=== PATIENT | female | born 1945 | race Caucasian/White ===

== ENCOUNTER 2016-05-08 10:14 | Outpatient (CLI) | payer MEDICARE | END 2016-05-08 10:15 | disposition home or self-care (01) | DX: E11.65 Type 2 diabetes mellitus with hyperglycemia (principal) ==

== ENCOUNTER 2016-09-26 08:55 | Outpatient (CLI) | payer MEDICARE ==
[2016-09-26 12:02] LABS: BASOPHILS # (AUTO) 0.1 10^3/uL (0.0-0.1); BASOPHILS % (AUTO) 1.1 %; EOSINOPHILS # (AUTO) 0.5 10^3/uL (0.0-0.7); EOSINOPHILS % (AUTO) 5.4 %; HCT - HEMATOCRIT 39.3 % (37.0-47.0); HGB - HEMOGLOBIN 13.4 g/dL (12.0-16.0); LYMPHOCYTES # (AUTO) 1.9 10^3/uL (1.5-3.5); LYMPHOCYTES % (AUTO) 22.7 %; MEAN CORPUSCULAR HEMOGLOBIN 31.5 pg (27.0-31.0); MEAN CORPUSCULAR HGB CONC 34.1 g/dL (32.0-36.0); MEAN CORPUSCULAR VOLUME 92.5 fL (81.0-99.0); MEAN PLATELET VOLUME 9.8 fL (7.9-10.8); MONOCYTES # (AUTO) 0.6 10^3/uL (0.0-1.0); MONOCYTES % (AUTO) 7.3 %; NEUTROPHILS # (AUTO) 5.3 10^3/uL (1.5-6.6); NEUTROPHILS % (AUTO) 63.5 %; RED BLOOD COUNT 4.25 10^6/uL (4.20-5.40); RED CELL DISTRIBUTION WIDTH 13.4 % (12.0-15.0); UNCORRECTED WHITE BLOOD COUNT 8.4 x10^3/uL; WHITE BLOOD COUNT 8.4 x10^3/uL (4.8-10.8)
[2016-09-26 12:37] LABS: HEMOGLOBIN A1C 1.52 g/dL
[2016-09-26 12:38] LABS: ALBUMIN/GLOBULIN RATIO 1.1 (1.0-2.2); BILIRUBIN,TOTAL 0.6 mg/dL (0.2-1.0); BUN - BLOOD UREA NITROGEN 29 mg/dL (6-20); CALCIUM 9.9 mg/dL (8.5-10.3); CARBON DIOXIDE - CO2 23 mmol/L (21-32); CHLORIDE 106 mmol/L (101-111); CHOL/HDL RATIO 6.1 (<4.4); CHOLESTEROL 225 mg/dL; CREATININE 1.6 mg/dL (0.4-1.0); GFR - MDRD 32 (>89); GLUCOSE 398 mg/dL (70-100); HDL CHOLESTEROL 37 mg/dL; LDL/HDL RATIO 3.6 (<4.4); SODIUM 137 mmol/L (135-145); TOTAL PROTEIN 6.9 g/dL (6.7-8.2); TRIGLYCERIDES 275 mg/dL; VLDL CHOLESTEROL 55 mg/dL
== END 2016-09-26 08:56 | disposition home or self-care (01) ==
LOC: LAB.F 08:55
PROVIDERS: ATTEND Family Medicine
DX: E11.65 Type 2 diabetes mellitus with hyperglycemia (principal)
CPT/HCPCS: 36415; 80053; 80061; 82043; 83036; 84443; 85025

== ENCOUNTER 2016-10-09 10:44 | Outpatient (CLI) | payer MEDICARE ==
--- NOTE | 2016-10-09 12:58 | XRAY Report ---
TWO-VIEW LEFT KNEE: 10/09/2016 CLINICAL INDICATION: Pain. FINDINGS: AP, lateral views of the left knee are compared to previous films of 12/11/2013. Sideplat e and screw fixation of the left distal femur is unchanged. There is no evidence of acute fracture o r hardware complication. No knee joint effusion is present. The joint spaces appear unremarkable. IMPRESSION: STABLE PREVIOUS SIDEPLATE AND SCREW FIXATION OF THE DISTAL FEMUR. JOB #: [id number] EXT JOB #:[id number]
== END 2016-10-09 10:45 | disposition home or self-care (01) ==
LOC: DI 10:44
PROVIDERS: ATTEND Family Medicine
DX: M25.562 Pain in left knee (principal); Z98.1 Arthrodesis status

== ENCOUNTER 2016-11-30 10:14 | Outpatient (CLI) | payer MEDICARE ==
[2016-11-30 19:35] LABS: HEMOGLOBIN A1C 0.81 g/dL
[2016-11-30 19:40] LABS: ALBUMIN/GLOBULIN RATIO 1.2 (1.0-2.2); BILIRUBIN,TOTAL 0.6 mg/dL (0.2-1.0); BUN - BLOOD UREA NITROGEN 49 mg/dL (6-20); CALCIUM 9.6 mg/dL (8.5-10.3); CARBON DIOXIDE - CO2 20 mmol/L (21-32); CHLORIDE 113 mmol/L (101-111); CHOL/HDL RATIO 3.6 (<4.4); CHOLESTEROL 143 mg/dL; CREATININE 2.6 mg/dL (0.4-1.0); GFR - MDRD 18 (>89); GLUCOSE 148 mg/dL (70-100); HDL CHOLESTEROL 40 mg/dL; LDL/HDL RATIO 2.2 (<4.4); POTASSIUM 5.1 mmol/L (3.5-5.0); SODIUM 140 mmol/L (135-145); TOTAL PROTEIN 6.8 g/dL (6.7-8.2); TRIGLYCERIDES 77 mg/dL; VLDL CHOLESTEROL 15 mg/dL
== END 2016-11-30 10:15 | disposition home or self-care (01) ==
LOC: LAB.F 10:14
PROVIDERS: ATTEND Family Medicine
DX: E78.5 Hyperlipidemia, unspecified (principal); N18.3 Chronic kidney disease, stage 3 (moderate); E11.65 Type 2 diabetes mellitus with hyperglycemia
CPT/HCPCS: 36415; 80053; 80061; 83036

== ENCOUNTER 2016-12-26 10:46 | Outpatient (CLI) | payer MEDICARE ==
[2016-12-26 18:10] LABS: CALCIUM 9.7 mg/dL (8.5-10.3); CREATININE 2.5 mg/dL (0.4-1.0); POTASSIUM 4.8 mmol/L (3.5-5.0)
== END 2016-12-26 10:47 | disposition home or self-care (01) ==
LOC: LAB.F 10:46
PROVIDERS: ATTEND Family Medicine
DX: N18.4 Chronic kidney disease, stage 4 (severe) (principal)
CPT/HCPCS: 36415; 80048

== ENCOUNTER 2017-01-02 09:10 | Outpatient (CLI) | payer MEDICARE ==
--- NOTE | 2017-01-02 10:47 | Ultrasound Report ---
RETROPERITONEAL ULTRASOUND: 01/02/2017 HISTORY: Stage IV chronic kidney disease. TECHNIQUE: Real-time scanning by the service counter cashier with saved static images reviewed. COMPARISON: CT scan abdomen and pelvis 08/13/2015. FINDINGS: Right kidney: 9.9 x 4.7 x 5.0 cm. Increased echogenicity with thinning of the renal cortex. No fin dings of mass, stones, obstruction, or perinephric collection. Left kidney: 11.7 x 5.5 x 4.9 cm. Increased echogenicity with thinning of the renal cortex. In the mid portion of the kidney, there is an area with twinkle artifact possibly representing calcificatio n although no stone is seen. No hydronephrosis, perinephric collection, mass or other finding. Bladder jets: Right not seen. Left is present. Bladder: Prevoid volume 121 mL, postvoid 3 mL. Unremarkable bladder appearance. IMPRESSION: BILATERAL ECHOGENIC KIDNEYS WITH THINNING OF THE RENAL CORTEX. NO EVIDENCE OF OBSTRUCTI ON. NEGATIVE BLADDER. JOB #: [id number] EXT JOB #:[id number]
== END 2017-01-02 09:11 | disposition home or self-care (01) ==
LOC: DI 09:10
PROVIDERS: ATTEND Family Medicine
DX: N18.4 Chronic kidney disease, stage 4 (severe) (principal)
CPT/HCPCS: 76770

== ENCOUNTER 2017-01-23 11:14 | Outpatient (CLI) | payer MEDICARE ==
[2017-01-23 17:56] LABS: HCT - HEMATOCRIT 34.8 % (37.0-47.0); HGB - HEMOGLOBIN 11.6 g/dL (12.0-16.0); MEAN CORPUSCULAR HEMOGLOBIN 32.1 pg (27.0-31.0); MEAN CORPUSCULAR HGB CONC 33.4 g/dL (32.0-36.0); RED BLOOD COUNT 3.62 10^6/uL (4.20-5.40); RED CELL DISTRIBUTION WIDTH 13.4 % (12.0-15.0); WHITE BLOOD COUNT 7.8 x10^3/uL (4.8-10.8)
== END 2017-01-23 11:15 | disposition home or self-care (01) ==
LOC: LAB.F 11:14
PROVIDERS: ATTEND Internal Medicine Nephrology
DX: D70.9 Neutropenia, unspecified (principal); R80.9 Proteinuria, unspecified
CPT/HCPCS: 36415; 82570; 84156

== ENCOUNTER 2017-03-02 11:14 | Outpatient (CLI) | payer MEDICARE ==
[2017-03-02 17:54] LABS: ALBUMIN/GLOBULIN RATIO 1.2 (1.0-2.2); BILIRUBIN,TOTAL 0.5 mg/dL (0.2-1.0); CALCIUM 9.7 mg/dL (8.5-10.3); CREATININE 2.2 mg/dL (0.4-1.0); PHOSPHORUS 3.5 mg/dL (2.5-4.6); TOTAL PROTEIN 7.4 g/dL (6.7-8.2)
[2017-03-06 15:36] LABS: ABNORMAL PROTEIN BAND 1 0.3 g/dL (NONE DETECTED); ALPHA 1 GLOBULIN 0.4 g/dL (0.2-0.3); ALPHA 2 GLOBULIN 0.9 g/dL (0.5-0.9); BETA 1 GLOBULIN 0.4 g/dL (0.4-0.6); BETA 2 GLOBULIN 0.3 g/dL (0.2-0.5); GAMMA GLOBULIN 1.1 g/dL (0.8-1.7)
[2017-03-06 16:26] LABS: TEST RESULT REPORT
== END 2017-03-02 11:15 | disposition home or self-care (01) ==
LOC: LAB.F 11:14
PROVIDERS: ATTEND Internal Medicine Nephrology
DX: N05.9 Unspecified nephritic syndrome with unspecified morphologic changes (principal); E83.30 Disorder of phosphorus metabolism, unspecified; N25.81 Secondary hyperparathyroidism of renal origin; D47.2 Monoclonal gammopathy; R80.9 Proteinuria, unspecified
CPT/HCPCS: 36415; 80053; 81599; 82570; 83970; 84100; 84155; 84156; 84165; 86334

== ENCOUNTER 2017-05-14 10:12 | Outpatient (CLI) | payer MEDICARE ==
[2017-05-14 18:33] LABS: CREATININE,URINE 77.4 mg/dL; PROTEIN/CREATININE RATIO,URINE 0.2 (<=0.2)
[2017-05-14 19:15] LABS: ALBUMIN 3.5 g/dL (3.2-5.5); ALBUMIN/GLOBULIN RATIO 1.1 (1.0-2.2); BILIRUBIN,TOTAL 0.6 mg/dL (0.2-1.0); CALCIUM 9.2 mg/dL (8.5-10.3); CREATININE 2.5 mg/dL (0.4-1.0); PHOSPHORUS 3.9 mg/dL (2.5-4.6); TOTAL PROTEIN 6.7 g/dL (6.7-8.2)
== END 2017-05-14 10:13 | disposition home or self-care (01) ==
LOC: LAB.F 10:12
PROVIDERS: ATTEND Internal Medicine Nephrology
DX: N05.9 Unspecified nephritic syndrome with unspecified morphologic changes (principal); D47.2 Monoclonal gammopathy; R80.9 Proteinuria, unspecified; E83.30 Disorder of phosphorus metabolism, unspecified; N25.81 Secondary hyperparathyroidism of renal origin
CPT/HCPCS: 36415; 80053; 82570; 83970; 84100; 84155; 84156; 84165

== ENCOUNTER 2017-05-23 11:55 | Outpatient (CLI) | payer MEDICARE ==
[2017-05-23 20:02] LABS: HB2 TOTAL 13.1 g/dL; HEMOGLOBIN A1C 1.85 g/dL; HEMOGLOBIN A1C % 15.1 % (4.6-6.2)
== END 2017-05-23 11:56 | disposition home or self-care (01) ==
LOC: LAB.WCP 11:55
PROVIDERS: ATTEND Family Medicine
DX: E11.65 Type 2 diabetes mellitus with hyperglycemia (principal)
CPT/HCPCS: 36415; 83036

== ENCOUNTER 2017-05-25 16:51 | Outpatient (CLI) | payer MEDICARE | END 2017-05-25 16:52 | disposition EMS.NT | LOC: EMS 16:51 | PROVIDERS: ATTEND Surgery | DX: S09.92XA Unspecified injury of nose, initial encounter (principal); V47.0XXA Car driver injured in collision with fixed or stationary object in nontraffic accident, initial encounter; Y92.481 Parking lot as the place of occurrence of the external cause ==

== ENCOUNTER 2017-07-18 19:40 | Emergency (ER) | payer MEDICARE ==
[2017-07-18 19:58] VITALS: BP 147/69
--- NOTE | 2017-07-18 20:34 | XRAY Report ---
EXAM: RIGHT WRIST RADIOGRAPHY EXAM DATE: 07/18/2017 08:26 PM. CLINICAL HISTORY: Trauma. COMPARISON: None. TECHNIQUE: 4 views. FINDINGS: Bones: There is comminuted fracture of the distal right radius. The fracture line is transversely ana luisa ented. No significant displacement or angulation. There is fractures of the ulnar styloid. Joints: No evidence of dislocation. There is lateral carpal degenerative disease. Soft Tissues: There is diffuse soft tissue swelling. IMPRESSION: There is comminuted, impacted fracture through the distal right radius. No evidence of si gnificant displacement or angulation. There is fracture through the ulnar styloid. Radiocarpal articu lation is maintained. MARGARITO Referring Provider Line: [phone] SITE ID: [id number]
--- NOTE | 2017-07-18 22:12 | ED Physician Documentation ---
PD HPI UPPER EXT INJURY - Stated complaint Stated Complaint: ARM INJURY - Chief complaint Chief Complaint: Ext Problem - History obtained from History obtained from: Patient - History of Present Illness Location: Right, Wrist Type of injury: Fall (slipped and fell backward, trying to catch fall with right hand.) Timing - onset: Today Timing - details: Abrupt onset, Still present Worsened by: Moving, Palpating Associated symptoms: Swelling. No: Weakness, Numbness Similar symptoms before: Has not had sx before Recently seen: Not recently seen Review of Systems Cardiac: denies: Chest pain / pressure GI: denies: Abdominal Pain Skin: denies: Abrasion (s), Laceration (s) Musculoskeletal: denies: Neck pain, Back pain Neurologic: denies: Altered mental status, Headache, Head injury PD PAST MEDICAL HISTORY - Past Medical History Past Medical History: Yes Endocrine/Autoimmune: Type 2 diabetes Psych: Depression - Past Surgical History Past Surgical History: Yes Ortho: Other - Present Medications Home Medications: Ambulatory Orders Medication Instructions Recorded Confirmed FLUoxetine [PROzac] 10 mg PO DAILY 08/25/15 08/25/15 Insulin Glargine [Lantus Solostar] 50 units SUBQ DAILY 08/25/15 08/25/15 High Blood Pressure 07/18/17 Oxycodone HCl/Acetaminophen 1 each PO Q6H PRN #15 tablet 07/18/17 [Percocet 5-325 mg Tablet] - Allergies Allergies/Adverse Reactions: Allergies Allergy/AdvReac Type Severity Reaction Status Date / Time hydrocodone bitartrate * Allergy Nausea Verified 07/18/17 19:58 [From Vicodin] - Social History Does the pt smoke?: No Smoking Status: Never smoker Does the pt drink ETOH?: Yes Does the pt have substance abuse?: No - Immunizations Immunizations are current?: Yes PD ED PE NORMAL - Vitals Vital signs reviewed: Yes - General General: Alert and oriented X 3, Well developed/nourished, Other (appears in some pain. Guarding ROM of the right wrist. ) - HEENT HEENT: Atraumatic - Neck Neck: Supple, no meningeal sign, No bony TTP - Cardiac Cardiac: RRR, No murmur - Respiratory Respiratory: Clear bilaterally, Other (no chestwall tenderness) - Abdomen Abdomen: Soft, Non tender - Back Back: No spinal TTP - Derm Derm: Normal color, Warm and dry - Extremities Extremities: Other (right wrist with tenderness and mild swelling at distal radius. No gross deformity. Normal pulsed and cap refill. ) - Neuro Neuro: No motor deficit, No sensory deficit Results - Vitals Vitals: Oxygen O2 Source Room air - Rads (name of study) right wrist Radiology: Prelim report reviewed (impacted nondisplaced colles fracture) Procedures - Splint (location) right wrist Splint applied by: Tech Type of splint: Fiberglass, Sugar tong Other: Patient tolerated well, No complications, Neurovascular intact, Sling provided PD MEDICAL DECISION MAKING - ED course Complexity details: reviewed results, considered differential, d/w patient Departure - Departure Disposition: 01 Home, Self Care Clinical Impression: Fall from slip, trip, or stumble Qualifiers: Encounter type: initial encounter Qualified Code(s): W01.0XXA - Fall on same level from slipping, tripping and stumbling without subsequent striking against object, initial encounter Fracture, Colles, right, closed Qualifiers: Encounter type: initial encounter Qualified Code(s): S52.531A - Colles' fracture of right radius, initial encounter for closed fracture Condition: Stable Record reviewed to determine appropriate education?: Yes Instructions: ED Fx Colles Wrist No Redu Requ, ED Splint Care Fiberglass Follow-Up: Brielle Miguel DO [Primary Care Provider] - Farhad Tobias MD [Provider Admit Priv/Credential] - Prescriptions: Oxycodone HCl/Acetaminophen [Percocet 5-325 mg Tablet] 1 each PO Q6H PRN #15 tablet PRN Reason: Pain Comments: Keep the wrist in the splint and keep it elevated with the sling or on a pillow. You can apply ice to it periodically through the splint to reduce swelling. Tylenol or ibuprofen if needed for pains. Add Percocet if needed for worse pain. Follow-up with orthopedics in early next week, call tomorrow for an appointment. They will switch it over to a cast likely at that point and likely re-x-ray it. We want to be sure he holds position so that it does not need reduction or surgery. The position currently looks okay. Discharge Date/Time: 07/18/17 22:49
[2017-07-18] MEDS ORDERED: oxyCOD/ACETAMIN 5 MG/325 MG TABLET PO STA (22:19)
[2017-07-18] MEDS ORDERED: ONDANSETRON ODT 4 MG TABLET TL STA (22:20)
[2017-07-18] MEDS ORDERED: oxyCODONE/ACET 5/325 Prepack 4 PO STA (22:20)
[2017-07-18] MEDS ORDERED: ONDANSETRON ODT 4 MG Prepack 2 TL PRN (22:20)
== END 2017-07-18 22:49 | disposition home or self-care (01) ==
LOC: ED 19:40
DX: S52.531A Colles' fracture of right radius, initial encounter for closed fracture (principal); W01.0XXA Fall on same level from slipping, tripping and stumbling without subsequent striking against object, initial encounter; Y93.89 Activity, other specified; E11.9 Type 2 diabetes mellitus without complications; Z79.4 Long term (current) use of insulin
CPT/HCPCS: 29105; 73110; 99283; A9270; Q0162

== ENCOUNTER 2017-08-02 06:09 | Day surgery (SDC) | payer MEDICARE ==
[2017-08-02] MEDS ORDERED: ceFAZolin 2 GM/50 ML 2 GM/50 ML BAG IV ONE (06:34)
[2017-08-02] MEDS ORDERED: LACTATED RINGERS 1,000 ML IV ONE ×2 (06:35→09:23)
[2017-08-02] MEDS ORDERED: BUPIVACAINE 0.5%-EPI 1:200000 PF 10 ML VIAL ONE (07:56)
[2017-08-02] MEDS ORDERED: BUPIVACAINE 0.5%-EPI 1:200000 PF 30 ML VIAL SUBQ ONE ×2 (08:01)
[2017-08-02] MEDS ORDERED: LIDOCAINE-MPF 2% 5 ML VIAL IM ONE (09:07)
[2017-08-02] MEDS ORDERED: ROCURONIUM 50 MG/5 ML VIAL IVP ONE (09:07)
[2017-08-02] MEDS ORDERED: ONDANSETRON 4 MG/2 ML VIAL IVP ONE (09:07)
[2017-08-02] MEDS ORDERED: ACETAMINOPHEN 1,000 MG/100 ML 100 ML IV ONE (09:07)
[2017-08-02] MEDS ORDERED: PROPOFOL 200 MG/20 ML VIAL IVP ONE (09:07)
[2017-08-02] MEDS ORDERED: fentaNYL 100 MCG/2 ML VIAL IVP ONE (09:07)
--- NOTE | 2017-08-02 10:38 | OPERATIVE REPORT ---
DATE OF SERVICE: 08/02/2017 Physician: Farhad Tobias MD PREOPERATIVE DIAGNOSIS: Right distal radius intraarticular displaced fracture. POSTOPERATIVE DIAGNOSIS: Right distal radius intraarticular displaced fracture. PROCEDURE PERFORMED: Open reduction internal fixation of right distal radial fracture utilizing a volar radial plate. SURGEON: Farhad Tobias MD ANESTHESIA: General. INDICATIONS FOR SURGERY: The patient is a 71-year-old female status post a ground-level fall onto an outstretched wrist causing a comminuted intraarticular and unstable fracture. After discussion of treatment options, the patient has opted for open reduction internal fixation of her fracture. FINDINGS AT SURGERY: The patient's fracture was indeed intraarticular with an unstable radial styloid fragment and dorsal angulation. The patient's fracture alignment and inclination and length of the radius were restored with surgery. Fixation gain was relatively good given the patient's age. DESCRIPTION OF OPERATIVE PROCEDURE: The patient was taken to the operating room, given a general anesthetic, tourniquet was placed on the right arm. Her forearm and hand were sterilely prepped and draped in standard fashion. Under tourniquet pressure of 200 mmHg, the patient's right wrist was exposed and a volar radial incision of 3.5 inches in length was made. Dissection was taken down to the flexor carpi radialis tendon and this was retracted towards the ulnar side, and a deeper dissection was taken down to the pronator quadratus. This muscle was reflected off the radial aspect of the distal radius and down to the white line. The fracture line was identified and the fracture fragment representing the styloid was reduced into position. A narrow DVR plate of the smallest size was applied to the volar radius and an oblong hole screw was placed in the radius that allowed further proximal distal positioning. A guide pin was inserted for proper orientation and length and placement of the plate. Following this, the initial screw was a threaded screw placed into the radial styloid with the fragment reduced. Additional screws were then inserted in the radius, both distally and proximal, which were locking screws and some posts. The C-arm images were obtained with careful positioning to ensure that there was no screw penetration into the carpus. At the completion, the placement of screws and hardware were satisfactory. The tourniquet was deflated. There was minimal bleeding and that which occurred was controlled with cautery. The wound was irrigated and the pronator repaired with 3-0 Vicryl, subcutaneous tissues with 3-0 Vicryl and the skin with Monocryl running subcuticular. Sterile dressings were applied and the patient was fitted in a well-padded below-elbow volar splint and taken to recovery room in stable condition. ESTIMATED BLOOD LOSS: Minimal. COMPLICATIONS: None. SPONGE AND NEEDLE COUNTS: Correct. TD: 08/02/2017 10:36
[2017-08-02 11:06] VITALS: BP 186/70
== END 2017-08-02 06:10 | disposition home or self-care (01) ==
LOC: SDS 06:09
PROVIDERS: ATTEND Orthopaedic Surgery
PROC: 0PSH04Z Reposition Right Radius with Internal Fixation Device, Open Approach (ICD-10-PCS; principal; 2017-08-02 07:30)
DX: S52.571A Other intraarticular fracture of lower end of right radius, initial encounter for closed fracture (principal); I10 Essential (primary) hypertension; E11.9 Type 2 diabetes mellitus without complications; F32.9 Major depressive disorder, single episode, unspecified; N28.9 Disorder of kidney and ureter, unspecified
CPT/HCPCS: 25608; C1713; J0131; J0690; J7120

== ENCOUNTER 2017-11-15 08:00 | Outpatient (CLI) | payer MEDICARE ==
[2017-11-15 18:51] LABS: BASOPHILS # (AUTO) 0.1 10^3/uL (0.0-0.1); BASOPHILS % (AUTO) 1.2 %; EOSINOPHILS # (AUTO) 0.5 10^3/uL (0.0-0.7); EOSINOPHILS % (AUTO) 5.5 %; HGB - HEMOGLOBIN 12.4 g/dL (12.0-16.0); LYMPHOCYTES # (AUTO) 1.9 10^3/uL (1.5-3.5); LYMPHOCYTES % (AUTO) 22.3 %; MEAN CORPUSCULAR HGB CONC 33.8 g/dL (32.0-36.0); MEAN CORPUSCULAR VOLUME 91.9 fL (81.0-99.0); MONOCYTES # (AUTO) 0.4 10^3/uL (0.0-1.0); MONOCYTES % (AUTO) 5.3 %; NEUTROPHILS # (AUTO) 5.5 10^3/uL (1.5-6.6); NEUTROPHILS % (AUTO) 65.7 %; PLT - PLATELET COUNT 256 10^3/uL (130-450); RED BLOOD COUNT 3.99 10^6/uL (4.20-5.40); RED CELL DISTRIBUTION WIDTH 13.6 % (12.0-15.0); WHITE BLOOD COUNT 8.4 x10^3/uL (4.8-10.8)
[2017-11-15 19:03] LABS: HB2 TOTAL 12.7 g/dL; HEMOGLOBIN A1C 1.44 g/dL; HEMOGLOBIN A1C % 12.5 % (4.6-6.2)
[2017-11-15 19:07] LABS: ALBUMIN 3.4 g/dL (3.2-5.5); ALBUMIN/GLOBULIN RATIO 0.8 (1.0-2.2); ALKALINE PHOSPHATASE 142 IU/L (42-121); ALT ALANINE AMINOTRANSFERASE 11 IU/L (10-60); AST ASPARTATE AMINOTRANSFERASE 12 IU/L (10-42); BILIRUBIN,TOTAL 0.6 mg/dL (0.2-1.0); BUN - BLOOD UREA NITROGEN 38 mg/dL (6-20); CALCIUM 9.9 mg/dL (8.5-10.3); CARBON DIOXIDE - CO2 23 mmol/L (21-32); CHLORIDE 103 mmol/L (101-111); CHOL/HDL RATIO 5.9 (<4.4); CHOLESTEROL 241 mg/dL; CREATININE 2.2 mg/dL (0.4-1.0); GFR - MDRD 22 (>89); GLUCOSE 375 mg/dL (70-100); HDL CHOLESTEROL 41 mg/dL; LDL CHOLESTEROL,CALCULATED 173 mg/dL; LDL/HDL RATIO 4.2 (<4.4); SODIUM 133 mmol/L (135-145); TOTAL PROTEIN 7.5 g/dL (6.7-8.2); VLDL CHOLESTEROL 27 mg/dL
== END 2017-11-15 08:01 | disposition home or self-care (01) ==
LOC: LAB.WCP 08:00
PROVIDERS: ATTEND Family Medicine
DX: E11.9 Type 2 diabetes mellitus without complications (principal)
CPT/HCPCS: 36415; 80053; 80061; 83036; 83721; 84443; 85025

== ENCOUNTER 2018-06-13 22:47 | Outpatient (CLI) | payer MEDICARE ==
--- NOTE | 2018-06-14 00:42 | Ultrasound Report ---
Reason: ABDOMINAL PAIN, RIGHT UPPER QUADRANT,JAUNDICE Procedure Date: 06/13/2018 Accession Number: [id number] / [id number] Procedure: US - Abdomen Limited CPT Code: FULL RESULT: EXAM: ABDOMEN ULTRASOUND LIMITED, RUQ EXAM DATE: 06/13/2018 11:59 PM. CLINICAL HISTORY: Abdominal pain, right upper quadrant; jaundice. COMPARISON: None. TECHNIQUE: Real-time scanning was performed with static images obtained. FINDINGS: Liver: Echotexture within normal limits without suspicious abnormality seen. Main portal vein flow: Hepatopetal. Gallbladder: Multiple gallstones without wall thickening or reported tenderness. Biliary System: CBD measures 10 mm. There is intrahepatic and extrahepatic ductal dilatation. No choledocholithiasis seen in the visualized portion of the duct. Distal duct and pancreatic head obscured. Other: None. IMPRESSION: 1. Diffuse biliary ductal dilatation without choledocholithiasis seen. Distal duct and pancreatic head obscured by bowel gas. Given history of jaundice, consider MRI/MRCP or ERCP for further evaluation. 2. Cholelithiasis without definite acute cholecystitis. Results and recommendations discussed with nurse practitioner Natacha. RADIA ADDENDUM: 06/14/18 01:[address] 08/13/2015 were made available. No changes to ultrasound report.
== END 2018-06-13 22:48 | disposition home or self-care (01) ==
LOC: DI 22:47
PROVIDERS: ATTEND Nurse Practitioner
DX: K80.20 Calculus of gallbladder without cholecystitis without obstruction (principal); K83.8 Other specified diseases of biliary tract; R17 Unspecified jaundice
CPT/HCPCS: 76705

== ENCOUNTER 2018-06-14 12:23 | Outpatient (CLI) | payer MEDICARE ==
[2018-06-14 13:12] LABS: BASOPHILS % (AUTO) 0.8 %; EOSINOPHILS % (AUTO) 1.3 %; HGB - HEMOGLOBIN 11.3 g/dL (12.0-16.0); LYMPHOCYTES % (AUTO) 65.1 %; MEAN CORPUSCULAR HEMOGLOBIN 31.3 pg (27.0-31.0); MEAN CORPUSCULAR HGB CONC 31.9 g/dL (32.0-36.0); MEAN CORPUSCULAR VOLUME 97.8 fL (81.0-99.0); MEAN PLATELET VOLUME 10.9 fL (7.9-10.8); MONOCYTES % (AUTO) 17.9 %; NEUTROPHILS % (AUTO) 14.9 %; PLT - PLATELET COUNT 205 10^3/uL (130-450); RED BLOOD COUNT 3.61 10^6/uL (4.20-5.40); RED CELL DISTRIBUTION WIDTH 15.6 % (12.0-15.0); WHITE BLOOD COUNT 6.6 x10^3/uL (4.8-10.8)
[2018-06-14 13:15] LABS: ABNORMAL LYMPHS % (MANUAL) 0 %; BAND NEUTROPHILS % (MANUAL) 0 %
[2018-06-14 13:30] LABS: ALBUMIN/GLOBULIN RATIO 0.7 (1.0-2.2); BILIRUBIN,TOTAL 20.7 mg/dL (0.2-1.0); CALCIUM 9.8 mg/dL (8.5-10.3); CREATININE 1.8 mg/dL (0.4-1.0); TOTAL PROTEIN 7.4 g/dL (6.7-8.2)
[2018-06-14] MEDS ORDERED: GADOBUTROL 10 MMOL/10 ML VIAL ONE (13:54)
[2018-06-14 14:27] LABS: BASOPHILS # (MANUAL) 0.1 10^3/uL (0-0.1); BASOPHILS % (MANUAL) 1 %; DIFFERENTIAL COMMENT MANUAL DIFFERENTIAL; EOSINOPHILS # (MANUAL) 0.2 10^3/uL (0-0.7); LYMPHOCYTES # (MANUAL) 0.9 10^3/uL (1.5-3.5); LYMPHOCYTES % (MANUAL) 14 %; MONOCYTES # (MANUAL) 0.3 10^3/uL (0.0-1.0); MYELOCYTES % (MANUAL) 1 %; NEUTROPHILS % (MANUAL) 76 %
[2018-06-14] MEDS ORDERED: GADOBUTROL 10 MMOL/10 ML VIAL IVP ONE ×2 (15:41)
--- NOTE | 2018-06-14 16:38 | MRI Report ---
Reason: ABDOMINAL PAIN,RIGHT UPPER QUADRANT,JAUNDICE Procedure Date: 06/14/2018 Accession Number: [id number] / [id number] Procedure: MRI - MRCP W/WO CPT Code: FULL RESULT: EXAM: MR ABDOMEN WITH AND WITHOUT CONTRAST EXAM DATE: 06/14/2018 03:34 PM. CLINICAL HISTORY: Abdominal pain, right upper quadrant. Jaundice. COMPARISON: Ultrasound of abdomen limited 06/13/2018. TECHNIQUE: Multiplanar breath-hold T1, T2, and DWI sequences obtained through the abdomen on an MR scanner. Images obtained before and after administration of 9 mL of Gadavist intravenous contrast. FINDINGS: Periportal edema. Moderate intrahepatic bile duct dilatation. Just distal to the right and left intrahepatic bile duct confluence, the common duct severely narrows with the common duct wall diffusely thickened with increased enhancement, length of approximately 6 cm. This is concerning for a common duct mass such as cholangiocarcinoma. There is a heterogeneous enhancing mass seen posterior to the common duct and the portacaval region, measures 2.2 x 2.6 cm, could be part of the primary cholangiocarcinoma versus local metastasis/lymphadenopathy, see axial image 73 series 1701. Small free fluid between this mass and the gallbladder. Two large gallstones with a mild to moderate amount of sludge. Pancreas: No definite pancreatic mass is seen. No pancreatic duct dilatation. Spleen: Unremarkable. Adrenals: Unremarkable. Kidneys: Mild bilateral renal atrophy suspected. No hydronephrosis. Bowel: No acute bowel findings are seen. Right-sided anterior abdominal wall artifacts, suspect metal artifacts. IMPRESSION: 1. Periportal edema. Moderate intrahepatic bile duct dilatation. Just distal to the right and left intrahepatic bile duct confluence, the common duct severely narrows with the common duct wall diffusely thickened with increased enhancement, length of approximately 6 cm. This is concerning for a common duct mass such as cholangiocarcinoma. There is a heterogeneous enhancing mass seen posterior to the common duct and the portacaval region, measures 2.2 x 2.6 cm, could be part of the primary cholangiocarcinoma versus local metastasis/lymphadenopathy. Further workup is recommended. Small free fluid between this mass and the gallbladder. Two large gallstones with a mild to moderate amount of sludge. 2. Mild bilateral renal atrophy suspected. 3. See above. RADIA
[2018-06-15 11:56] LABS: HEPATITIS B SURFACE ANTIGEN NON-REACTIVE (NON-REACTIVE)
[2018-06-15 12:51] LABS: HEPATITIS C ANTIBODY NON-REACTIVE (NON-REACTIVE)
== END 2018-06-14 12:24 | disposition home or self-care (01) ==
LOC: DI 12:23
PROVIDERS: ATTEND Nurse Practitioner
DX: K83.8 Other specified diseases of biliary tract (principal); K80.20 Calculus of gallbladder without cholecystitis without obstruction; E11.9 Type 2 diabetes mellitus without complications
CPT/HCPCS: 36415; 74183; 80053; 85025; 85610; 85730; 86317; 86709; 86803; 87340; A9585

== ENCOUNTER 2018-07-16 11:34 | Outpatient (CLI) | payer MEDICARE ==
[2018-07-16 17:37] LABS: BASOPHILS # (AUTO) 0.1 10^3/uL (0.0-0.1); BASOPHILS % (AUTO) 0.8 %; EOSINOPHILS # (AUTO) 0.1 10^3/uL (0.0-0.7); EOSINOPHILS % (AUTO) 1.4 %; HGB - HEMOGLOBIN 9.4 g/dL (12.0-16.0); LYMPHOCYTES # (AUTO) 2.1 10^3/uL (1.5-3.5); MEAN CORPUSCULAR HEMOGLOBIN 31.2 pg (27.0-31.0); MEAN CORPUSCULAR VOLUME 94.5 fL (81.0-99.0); MEAN PLATELET VOLUME 9.4 fL (7.9-10.8); MONOCYTES # (AUTO) 0.8 10^3/uL (0.0-1.0); MONOCYTES % (AUTO) 8.4 %; NEUTROPHILS # (AUTO) 6.5 10^3/uL (1.5-6.6); NEUTROPHILS % (AUTO) 67.4 %; PLT - PLATELET COUNT 342 10^3/uL (130-450); RED BLOOD COUNT 3.01 10^6/uL (4.20-5.40); RED CELL DISTRIBUTION WIDTH 15.8 % (12.0-15.0); WHITE BLOOD COUNT 9.7 x10^3/uL (4.8-10.8)
== END 2018-07-16 11:35 | disposition home or self-care (01) ==
LOC: LAB.F 11:34
PROVIDERS: ATTEND Internal Medicine Gastroenterology
DX: C22.1 Intrahepatic bile duct carcinoma (principal); R97.8 Other abnormal tumor markers; R93.2 Abnormal findings on diagnostic imaging of liver and biliary tract; K83.1 Obstruction of bile duct; E11.9 Type 2 diabetes mellitus without complications
CPT/HCPCS: 36415; 85025

== ENCOUNTER 2018-08-05 08:31 | Emergency (ER) | payer MEDICARE ==
[2018-08-05] MEDS ORDERED: ONDANSETRON 4 MG/2 ML VIAL IVP STA (08:47)
[2018-08-05] MEDS ORDERED: SODIUM CHLORIDE 0.9% 1,000 ML IV STA (08:47)
[2018-08-05 09:09] LABS: BASOPHILS # (AUTO) 0.1 10^3/uL (0.0-0.1); BASOPHILS % (AUTO) 0.5 %; EOSINOPHILS # (AUTO) 0.2 10^3/uL (0.0-0.7); EOSINOPHILS % (AUTO) 1.6 %; HGB - HEMOGLOBIN 11.1 g/dL (12.0-16.0); LYMPHOCYTES # (AUTO) 1.5 10^3/uL (1.5-3.5); LYMPHOCYTES % (AUTO) 11.4 %; MEAN CORPUSCULAR HEMOGLOBIN 30.3 pg (27.0-31.0); MEAN CORPUSCULAR HGB CONC 33.2 g/dL (32.0-36.0); MEAN CORPUSCULAR VOLUME 91.2 fL (81.0-99.0); MONOCYTES # (AUTO) 0.7 10^3/uL (0.0-1.0); MONOCYTES % (AUTO) 5.6 %; NEUTROPHILS # (AUTO) 10.5 10^3/uL (1.5-6.6); NEUTROPHILS % (AUTO) 80.9 %; PLT - PLATELET COUNT 436 10^3/uL (130-450); RED BLOOD COUNT 3.66 10^6/uL (4.20-5.40); RED CELL DISTRIBUTION WIDTH 14.3 % (12.0-15.0)
--- NOTE | 2018-08-05 09:14 | ED Physician Documentation ---
History of Present Illness - Stated complaint Stated Complaint: VOMITING, DEHYDRATED - Chief complaint Chief Complaint: Abd Pain - History obtained from History obtained from: Patient, Family - History of Present Illness Timing: How many days ago (3) Pain level max: 5 Pain level now: 5 Improved by: nothing Worsened by: eating - Additonal information Additional information: 72-year-old female, recently diagnosed with bile duct cancer, scheduled to have a port placed today but has had vomiting for the past 3 days. Has not taken anything for this. No fevers. Has abdominal pain but this is unchanged from prior. Is having diarrhea as well. She is diabetic and is on insulin. Did not take her blood sugar today. Her care is at [facility]. Review of Systems Ten Systems: 10 systems reviewed and negative Constitutional: denies: Fever, Chills Respiratory: denies: Cough Skin: denies: Rash Musculoskeletal: denies: Neck pain, Back pain Neurologic: denies: Headache PD PAST MEDICAL HISTORY - Past Medical History Cardiovascular: Hypertension Respiratory: None Endocrine/Autoimmune: Type 2 diabetes GI: Chronic diarrhea, Other : Renal insuffiency HEENT: None Psych: Depression Musculoskeletal: None Other Past Medical History: bial duct cancer - Past Surgical History Past Surgical History: Yes Ortho: Other HEENT: Cataracts - Present Medications Home Medications: Ambulatory Orders Medication Instructions Recorded Confirmed Insulin Glargine [Lantus Solostar] 50 units SUBQ DAILY 08/25/15 08/02/17 Cephalexin [Keflex] 500 mg PO Q6H #20 capsule 08/05/18 Ondansetron Odt [Zofran] 4 mg TL Q6H PRN #10 tablet 08/05/18 - Allergies Allergies/Adverse Reactions: Allergies Allergy/AdvReac Type Severity Reaction Status Date / Time hydrocodone bitartrate * Allergy Nausea Verified 07/31/17 10:35 [From Vicodin] metoprolol Allergy Unknown Verified 08/05/18 08:41 - Social History Does the pt smoke?: No Smoking Status: Never smoker Does the pt drink ETOH?: Yes Does the pt have substance abuse?: No - Immunizations Immunizations are current?: Yes PD ED PE NORMAL - Vitals Vital signs reviewed: Yes - General General: Alert and oriented X 3, No acute distress, Well developed/nourished - HEENT HEENT: PERRL, Moist mucous membranes - Neck Neck: Supple, no meningeal sign - Cardiac Cardiac: RRR, Strong equal pulses - Respiratory Respiratory: No respiratory distress, Clear bilaterally - Abdomen Abdomen: Soft, Non distended, Other (Mild diffuse tenderness to palpation across the abdomen. No peritoneal signs. Hepatomegaly present) - Derm Derm: Warm and dry - Extremities Extremities: No edema, No calf tenderness / cord - Neuro Neuro: Alert and oriented X 3 - Psych Psych: Normal mood, Normal affect Results - Vitals Vitals: Vital Signs - 24 hr 08/05/18 08/05/18 08:37 10:53 Temperature 36 C L Heart Rate 93 74 Respiratory 20 12 Rate Blood Pressure 94/55 L 115/69 O2 Saturation 98 100 Oxygen O2 Source Room air - Labs Labs: Laboratory Tests 08/05/18 08/05/18 08/05/18 09:00 09:00 09:10 WBC 13.0 H RBC 3.66 L Hgb 11.1 L Hct 33.4 L MCV 91.2 MCH 30.3 MCHC 33.2 RDW 14.3 Plt Count 436 MPV 8.0 Neut # (Auto) 10.5 H Lymph # (Auto) 1.5 [place] # (Auto) 0.7 Eos # (Auto) 0.2 Baso # (Auto) 0.1 Absolute Nucleated RBC 0.00 Nucleated RBC % 0.0 VBG pH VBG pCO2 VBG pO2 VBG HCO3 VBG Total CO2 VBG O2 Saturation VBG Base Excess Sodium 136 Potassium 3.7 Chloride 94 L Carbon Dioxide 29 Anion Gap 13.0 BUN 46 H Creatinine 2.3 H Estimated GFR (MDRD) 21 L Glucose 155 H Calcium 9.7 Total Bilirubin 1.9 H AST 326 H ALT 336 H Alkaline Phosphatase 1254 H Total Protein 7.9 Albumin 2.5 L Globulin 5.4 H Albumin/Globulin Ratio 0.5 L Lipase 123 H Urine Color YELLOW Urine Clarity CLOUDY Urine pH 6.0 Ur Specific [place] 1.020 Urine Protein 30 H Urine Glucose (UA) NEGATIVE Urine Ketones NEGATIVE Urine Occult Blood NEGATIVE Urine Nitrite NEGATIVE Urine Bilirubin NEGATIVE Urine Urobilinogen 4 H Ur Leukocyte Esterase MODERATE H Urine RBC 0-5 Urine WBC >25 H Urine WBC Clumps PRESENT Ur Squamous Epith Cells MANY Squamous H Urine Bacteria Many H Urine Yeast PRESENT Ur Microscopic Review INDICATED Urine Culture Comments NOT INDICATED Serum Ketones 08/05/18 08/05/18 09:25 09:25 WBC RBC Hgb Hct MCV MCH MCHC RDW Plt Count MPV Neut # (Auto) Lymph # (Auto) [place] # (Auto) Eos # (Auto) Baso # (Auto) Absolute Nucleated RBC Nucleated RBC % VBG pH 7.450 H VBG pCO2 43.7 VBG pO2 21.1 L VBG HCO3 29.4 H VBG Total CO2 30.8 H VBG O2 Saturation 34.8 L VBG Base Excess 4.8 H Sodium Potassium Chloride Carbon Dioxide Anion Gap BUN Creatinine Estimated GFR (MDRD) Glucose Calcium Total Bilirubin AST ALT Alkaline Phosphatase Total Protein Albumin Globulin Albumin/Globulin Ratio Lipase Urine Color Urine Clarity Urine pH Ur Specific [place] Urine Protein Urine Glucose (UA) Urine Ketones Urine Occult Blood Urine Nitrite Urine Bilirubin Urine Urobilinogen Ur Leukocyte Esterase Urine RBC Urine WBC Urine WBC Clumps Ur Squamous Epith Cells Urine Bacteria Urine Yeast Ur Microscopic Review Urine Culture Comments Serum Ketones NEGATIVE PD MEDICAL DECISION MAKING - ED course Complexity details: reviewed results, re-evaluated patient, considered differential, d/w patient, d/w family ED course: 72-year-old female with vomiting. Feels better after IV fluids and Zofran. Tolerating p.o. without difficulty. Will prescribe Zofran for home. We will have her follow-up with her doctor for further evaluation of her biliary duct cancer. Her LFTs are stable from prior visit as is her elevated alk phos. Patient and family counseled regarding signs and symptoms for which I believe and urgent re-evaluation would be necessary. Patient with good understanding of and agreement to plan and is comfortable going home at this time This document was made in part using voice recognition software. While efforts are made to proofread this document, sound alike and grammatical errors may occur. Departure - Departure Disposition: Home, Self Care Clinical Impression: Dehydration Vomiting Qualifiers: Vomiting type: unspecified Vomiting Intractability: non-intractable Nausea presence: with nausea Qualified Code(s): R11.2 - Nausea with vomiting, unspecified UTI (urinary tract infection) Qualifiers: Urinary tract infection type: acute cystitis Hematuria presence: without hematuria Qualified Code(s): N30.00 - Acute cystitis without hematuria Condition: Good Instructions: ED Dehydration, ED UTI Cystitis Female Follow-Up: Cara Manzano ARNP, [facility] [Primary Care Provider] - Within 1 week Prescriptions: Cephalexin [Keflex] 500 mg PO Q6H #20 capsule Ondansetron Odt [Zofran] 4 mg TL Q6H PRN #10 tablet PRN Reason: Nausea / Vomiting Comments: You need to continue to eat and drink at home. Return if you worsen. Follow-up with your oncologist for further care. Take all antibiotics until gone Discharge Date/Time: 08/05/18 11:15
[2018-08-05 09:22] LABS: GLUCOSE, URINE (UA) NEGATIVE (NEGATIVE); KETONES,URINE (UA) NEGATIVE (NEGATIVE); LEUKOCYTE ESTERASE, URINE MODERATE (NEGATIVE); NITRITE,URINE NEGATIVE (NEGATIVE); OCCULT BLOOD,URINE NEGATIVE (NEGATIVE); PROTEIN,URINE 30 mg/dL (NEGATIVE); UROBILINOGEN,URINE 4 E.U./dL (NORMAL)
[2018-08-05 09:28] LABS: BACTERIA,URINE Many /HPF (None Seen); BILIRUBIN,URINE NEGATIVE (NEGATIVE); CLARITY,URINE CLOUDY (CLEAR); ICTOTEST,URINE NEGATIVE; RBC,URINE 0-5 /HPF (0-5); SQUAMOUS EPITHELIAL CELL,UR MANY Squamous (<= Few); WBC CLUMPS,URINE PRESENT
[2018-08-05 09:29] LABS: YEAST,URINE PRESENT
[2018-08-05 09:32] LABS: VBG PCO2 43.7 mmHg (41-51); VBG PH 7.45 (7.31-7.41); VBG PO2 21.1 mmHg (25-47); VBG TOTAL CO2 30.8 mmol/L (24-29)
[2018-08-05 09:32] LABS: ALBUMIN 2.5 g/dL (3.2-5.5); ALBUMIN/GLOBULIN RATIO 0.5 (1.0-2.2); BILIRUBIN,TOTAL 1.9 mg/dL (0.2-1.0); CALCIUM 9.7 mg/dL (8.5-10.3); CREATININE 2.3 mg/dL (0.4-1.0); TOTAL PROTEIN 7.9 g/dL (6.7-8.2)
[2018-08-05 09:33] LABS: VBG BASE EXCESS 4.8 mmol/L (-2 - +2)
[2018-08-05] MEDS ORDERED: cefTRIAXone 1 GM VIAL IVP STA (10:02)
[2018-08-05 10:53] VITALS: BP 115/69
== END 2018-08-05 11:15 | disposition home or self-care (01) ==
LOC: ED 08:31
DX: E86.0 Dehydration (principal); N30.00 Acute cystitis without hematuria; R74.8 Abnormal levels of other serum enzymes; C24.9 Malignant neoplasm of biliary tract, unspecified; I10 Essential (primary) hypertension; E11.9 Type 2 diabetes mellitus without complications; Z79.4 Long term (current) use of insulin
CPT/HCPCS: 36415; 80053; 81001; 81003; 82009; 82803; 83690; 85025; 87086; 96361; 96374; 96375; 99284

== ENCOUNTER 2018-08-06 08:13 | Emergency (ER) | payer MEDICARE ==
[2018-08-06 08:24] VITALS: BP 103/72
[2018-08-06] MEDS ORDERED: SODIUM CHLORIDE 0.9% 1,000 ML IV ONE (08:53)
[2018-08-06] MEDS ORDERED: ONDANSETRON 4 MG/2 ML VIAL IVP STA (08:53)
--- NOTE | 2018-08-06 09:02 | ED Physician Documentation ---
History of Present Illness - Stated complaint Stated Complaint: VOMITING - Chief complaint Chief Complaint: Abd Pain - History obtained from History obtained from: Patient, Family () - History of Present Illness Timing: How many days ago (4) - Additonal information Additional information: The patient is a 72-year-old female, recently diagnosed with bile duct cancer, who presents with vomiting that started 4 days ago. She was seen in the emergency department here yesterday and treated with IV fluids and IV Zofran. She had recurrent vomiting last night, and is concerned about recurrent dehydration this morning. She has not vomited this morning. She reports generalized abdominal pain. She denies fever, diarrhea, or dysuria. When seen here yesterday she was also diagnosed with a urinary tract infection, and was prescribed cephalexin. She has not taken the medication because of her nausea and vomiting. Her bile duct cancer was diagnosed about 1 month ago, and she underwent placement of biliary stent.. She was scheduled for port placement yesterday, but did not have the procedure performed because she was in the emergency department here. History is also significant for insulin dependent diabetes, and for renal insufficiency. Review of Systems Constitutional: reports: Fatigue. denies: Fever Ears: denies: Tinnitus/ringing Nose: denies: Congestion Throat: denies: Sore throat Cardiac: denies: Chest pain / pressure Respiratory: denies: Dyspnea, Cough GI: reports: Abdominal Pain, Nausea, Vomiting. denies: Diarrhea : denies: Dysuria Skin: denies: Rash Musculoskeletal: denies: Back pain Neurologic: denies: Focal weakness, Numbness, Headache PD PAST MEDICAL HISTORY - Past Medical History Cardiovascular: Hypertension Respiratory: None Endocrine/Autoimmune: Type 2 diabetes GI: Chronic diarrhea, Other : Renal insuffiency HEENT: None Psych: Depression Musculoskeletal: None - Past Surgical History Past Surgical History: Yes Ortho: Other HEENT: Cataracts - Present Medications Home Medications: Ambulatory Orders Medication Instructions Recorded Confirmed Insulin Glargine [Lantus Solostar] 50 units SUBQ DAILY 08/25/15 08/02/17 Cephalexin [Keflex] 500 mg PO Q6H #20 capsule 08/05/18 Ondansetron Odt [Zofran] 4 mg TL Q6H PRN #10 tablet 08/05/18 - Allergies Allergies/Adverse Reactions: Allergies Allergy/AdvReac Type Severity Reaction Status Date / Time hydrocodone bitartrate * AdvReac Nausea Verified 08/06/18 08:25 [From Vicodin] - Social History Does the pt smoke?: No Smoking Status: Never smoker Does the pt drink ETOH?: Yes Does the pt have substance abuse?: No - Immunizations Immunizations are current?: Yes PD ED PE NORMAL - Vitals Vital signs reviewed: Yes (normal) - General General: Alert and oriented X 3, Well developed/nourished - HEENT HEENT: Atraumatic, EOMI, Pharynx benign - Neck Neck: Supple, no meningeal sign, No adenopathy, No JVD - Cardiac Cardiac: RRR - Respiratory Respiratory: No respiratory distress, Clear bilaterally - Abdomen Abdomen: Soft, Non distended, Other (Mild diffuse tenderness to palpation, without rebound or guarding. Slightly greater tenderness in the right upper quadrant than elsewhere.) - Back Back: No CVA TTP - Derm Derm: No rash - Extremities Extremities: No edema, No calf tenderness / cord - Neuro Neuro: Alert and oriented X 3, No motor deficit, Normal speech Results - Vitals Vitals: Oxygen O2 Source Room air - Labs Labs: Laboratory Tests 08/06/18 08/06/18 08/06/18 08:28 09:15 09:15 WBC 13.9 H RBC 3.38 L Hgb 10.1 L Hct 30.6 L MCV 90.6 MCH 29.8 MCHC 32.9 RDW 14.6 Plt Count 421 MPV 8.1 Neut # (Auto) 11.2 H Lymph # (Auto) 1.7 [place] # (Auto) 0.9 Eos # (Auto) 0.2 Baso # (Auto) 0.1 Absolute Nucleated RBC 0.01 Nucleated RBC % 0.1 POC Whole Bld Glucose 116 H Urine Color DARK YELLOW Urine Clarity CLEAR Urine pH 7.5 Ur Specific [place] 1.010 Urine Protein 30 H Urine Glucose (UA) NEGATIVE Urine Ketones NEGATIVE Urine Occult Blood NEGATIVE Urine Nitrite NEGATIVE Urine Bilirubin MODERATE H Urine Urobilinogen >=8.0 H Ur Leukocyte Esterase NEGATIVE Urine RBC 0-5 Urine WBC 6-10 H Ur Squamous Epith Cells MOD Squamous H Urine Bacteria Few Ur Microscopic Review INDICATED Urine Culture Comments NOT INDICATED PD MEDICAL DECISION MAKING - ED course Complexity details: reviewed old records, reviewed results, re-evaluated patient, considered differential, d/w patient, d/w family ED course: The patient's presentation is significant for nausea and vomiting with mild abdominal pain, associated with bile duct cancer. In addition her urinalysis reveals urinary tract infection, with pyuria. She was seen in the emergency department yesterday with similar symptoms, and improved with IV fluid hydration and IV antiemetic. She has not taken antibiotic therapy at home because of recurrent nausea and vomiting. Her CBC today reveals an elevated white count of 13.9, which is similar to yesterday at 13.1. Her chemistry panel was not able to be reported because of hemolyzed specimen. Her blood sugar is normal at 116. When the lab came to redraw the specimen, the patient and her refused, stating they will be going to [place] where they hope to get the port placement that was scheduled for yesterday. Treatment in the emergency department included administration of normal saline 1 L IV, Zofran 4 mg IV, and cephalexin 500 mg orally. She had no further nausea or vomiting while in the emergency department. She demonstrated ability to drink fluids without recurrent nausea. I discussed with her and her potentially worrisome signs or symptoms that should prompt reevaluation in the emergency department. Departure - Departure Disposition: 01 Home, Self Care Clinical Impression: Dehydration, Bile duct cancer Vomiting Qualifiers: Vomiting type: unspecified Vomiting Intractability: non-intractable Nausea presence: with nausea Qualified Code(s): R11.2 - Nausea with vomiting, unspecified UTI (urinary tract infection) Qualifiers: Urinary tract infection type: acute cystitis Hematuria presence: without hematuria Qualified Code(s): N30.00 - Acute cystitis without hematuria Condition: Stable Instructions: ED UTI Cystitis Female, ED Nausea Vomiting Follow-Up: Cara Manzano ARNP, [facility] [Credentialed Staff Provider] - DOMINGO ESTRADA MD [Physician No Access] - Comments: Take cephalexin as prescribed. You can use Zofran as needed for nausea. Follow-up for port placement as planned, and follow-up with your oncologist. Return to the emergency department if you develop increasing abdominal pain, persistent vomiting, recurrent dehydration, or otherwise worsening symptoms. Discharge Date/Time: 08/06/18 10:34
[2018-08-06 09:26] LABS: BASOPHILS # (AUTO) 0.1 10^3/uL (0.0-0.1); BASOPHILS % (AUTO) 0.4 %; EOSINOPHILS # (AUTO) 0.2 10^3/uL (0.0-0.7); EOSINOPHILS % (AUTO) 1.1 %; HGB - HEMOGLOBIN 10.1 g/dL (12.0-16.0); LYMPHOCYTES # (AUTO) 1.7 10^3/uL (1.5-3.5); MEAN CORPUSCULAR HEMOGLOBIN 29.8 pg (27.0-31.0); MEAN CORPUSCULAR HGB CONC 32.9 g/dL (32.0-36.0); MEAN CORPUSCULAR VOLUME 90.6 fL (81.0-99.0); MEAN PLATELET VOLUME 8.1 fL (7.9-10.8); MONOCYTES # (AUTO) 0.9 10^3/uL (0.0-1.0); MONOCYTES % (AUTO) 6.2 %; NEUTROPHILS # (AUTO) 11.2 10^3/uL (1.5-6.6); NEUTROPHILS % (AUTO) 80.3 %; PLT - PLATELET COUNT 421 10^3/uL (130-450); RED BLOOD COUNT 3.38 10^6/uL (4.20-5.40); RED CELL DISTRIBUTION WIDTH 14.6 % (12.0-15.0); WHITE BLOOD COUNT 13.9 x10^3/uL (4.8-10.8)
[2018-08-06 09:40] LABS: GLUCOSE, URINE (UA) NEGATIVE (NEGATIVE); KETONES,URINE (UA) NEGATIVE (NEGATIVE); LEUKOCYTE ESTERASE, URINE NEGATIVE (NEGATIVE); NITRITE,URINE NEGATIVE (NEGATIVE); OCCULT BLOOD,URINE NEGATIVE (NEGATIVE); PH,URINE 7.5 PH (5.0-7.5); PROTEIN,URINE 30 mg/dL (NEGATIVE); UROBILINOGEN,URINE >=8.0 E.U./dL (NORMAL)
[2018-08-06 09:43] LABS: BILIRUBIN,URINE MODERATE (NEGATIVE); CLARITY,URINE CLEAR (CLEAR); ICTOTEST,URINE POSITIVE
[2018-08-06 09:50] LABS: RBC,URINE 0-5 /HPF (0-5)
[2018-08-06 09:51] LABS: BACTERIA,URINE Few /HPF (None Seen); SQUAMOUS EPITHELIAL CELL,UR MOD Squamous (<= Few)
[2018-08-06] MEDS ORDERED: cephALEXin 250 MG CAPSULE PO STA (10:12)
== END 2018-08-06 10:34 | disposition home or self-care (01) ==
LOC: ED 08:13
DX: E86.0 Dehydration (principal); C24.0 Malignant neoplasm of extrahepatic bile duct; R11.2 Nausea with vomiting, unspecified; N30.00 Acute cystitis without hematuria; D72.829 Elevated white blood cell count, unspecified; E11.9 Type 2 diabetes mellitus without complications; I10 Essential (primary) hypertension
CPT/HCPCS: 36415; 81001; 85025; 96374; 99283; 99284; A9270; 80053; 81003; 83690; 87086